=== PATIENT | male | born 1950 | race African-American/Black ===

== ENCOUNTER 2016-12-13 14:12 | Inpatient (IN) ==
--- NOTE | 2016-12-13 14:43 | EKG Report ---
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
[2016-12-13] MEDS ORDERED: ASPIRIN 325 MG TABLET PO STA (14:55)
[2016-12-13] MEDS ORDERED: DILTIAZEM 50 MG/10 ML VIAL IV STA (14:55)
[2016-12-13] MEDS ORDERED: ONDANSETRON 4 MG/2 ML VIAL IV STA (14:55)
--- NOTE | 2016-12-13 15:03 | EKG Report ---
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
[2016-12-13 15:15] LABS: Basophils % 0.5 % (0.0-0.8); Eosinophils % 0.2 % (0.00-10.9); Hematocrit 31.3 VOL% (42.0-52.0); Hemoglobin 11.1 GM/DL (14.0-18.0); Immature Granulocytes % 0.4 %; Immature Granulocytes Absolute 0.03 #; Lymphocytes # 1.1 10*3/uL (1.4-4.0); Lymphocytes % 12.5 % (21.2-54.2); Mean Corpuscular HGB Conc 35.5 GM/DL (32-36); Mean Corpuscular Hemoglobin 31 PG (27-34); Mean Corpuscular Volume 87.7 FL (87-102); Mean Platelet Volume 10.3 FL (9.6-12.0); Monocytes # 0.7 10*3/uL (0.11-0.8); Monocytes % 7.8 % (1.7-12.7); Neutrophils # 6.7 10*3/uL (1.4-7.4); Neutrophils % 78.6 % (38.7-73.9); Platelet Count 326 T/CUMM (130-400); Red Blood Count 3.57 MC/CUMM (3.8-5.5); Red Cell Distribution Width 13.5 % (9.3-17.3); White Blood Count 8.5 T/CUMM (4-12)
[2016-12-13] MEDS ORDERED: ONDANSETRON 4 MG/2 ML VIAL ONE (15:17)
[2016-12-13] MEDS ORDERED: ASPIRIN 325 MG TABLET ONE (15:17)
[2016-12-13] MEDS ORDERED: DILTIAZEM 50 MG/10 ML VIAL IV ONE (15:18)
[2016-12-13 15:22] LABS: INR 1.1; PT Patient Result 11.4 SECS; Partial Thromboplastin Time 32.2 SECS (0-40)
--- NOTE | 2016-12-13 15:27 | CT Report ---
CT of the head without contrast. Indication: Hemiparesthesias. Left arm numbness. Comparison: May 23, 2016. There is generalized prominence of the ventricles and sulci consistent with atrophy of aging. There is a cavum septum lucidum. There are areas of low density within the periventricular white matter, likely related to chronic microvascular ischemia. Remote lacunar infarct in the right thalamus. Remote lacunar infarcts are seen in the right caudate head and bilateral caudate body. No mass effect or midline shift. No evidence of acute hemorrhage. No cortical infarct is visible at this time. The calvarium is intact. Included paranasal sinuses and the mastoid air cells are clear. Calcific plaque is present within the intracranial internal carotid arteries. Rather extensive scalp calcifications are again noted. Impression: Chronic ischemic changes. No acute process is seen at this time. The CT exam was performed using one or more of the following dose reduction techniques: Automated exposure control, adjustment of the mA and/or kV according to patient size, or use of iterative reconstruction technique. PROCEDURE INTERPRETED AT [facility] DEPARTMENT OF RADIOLOGY Final Report Signed by: Dr. Margot Atkins
[2016-12-13 15:28] LABS: Alanine Aminotransferase 19 U/L (16-61); Albumin 2.9 G/DL (3.4-5.0); Alkaline Phosphatase 61 U/L (45-117); Aspartate Amino Transferase 22 U/L (0-37); Blood Urea Nitrogen 26 MG/DL (7-18); Calcium 9.6 MG/DL (8.5-10.1); Glucose 245 MG/DL (74-106); Potassium 3.2 MMOL/L (3.5-5.1); Sodium 136 MMOL/L (136-145); Total Protein 7.1 G/DL (6.4-8.3); Troponin I Only 0.164 NG/ML (0.00-0.045)
--- NOTE | 2016-12-13 15:28 | XRay Report ---
Portable chest. Indication: Cardiomegaly. Comparison: May 23, 2016. The heart is normal in size. The pulmonary vasculature is normal. The lung gonzales are clear. There is uncoiling of the thoracic aorta which often indicates chronic hypertension. Severe degenerative changes are noted at each shoulder. Impression: No acute abnormality. PROCEDURE INTERPRETED AT [facility] DEPARTMENT OF RADIOLOGY Final Report Signed by: Dr. Margot Atkins
[2016-12-13] MEDS ORDERED: ENOXAPARIN 100 MG/ML SYRINGE SUBCUT STA (15:48)
[2016-12-13] MEDS: DILTIAZEM INJ 100 MG in SODIUM CHLORIDE 0.9% 100 ML IV SCH ×2 (15:51→16:45)
--- NOTE | 2016-12-13 15:53 | Emergency Department Note ---
IShon Brooke, am scribing for, and in the presence of, Sergo Patel MD 15 :03. Amanda Coe Charles R, MD, personally performed the services described in this documentation, ascribed by Judy Menendez in my presence, and it is both accurate and complete 553 . Arrival - Arrival Chief Complaint: Extremity Problem Stated Complaint: lt arm numb and pain in neck ED Nursing Triage Note: Pt c/o left arm numbness and neck pain x 3 days states he was seen here earlier in the year for the same complaint given meds but after his meds ran out the sx returned. Mode of Arrival: Ambulatory Source: Patient, Family, RN Notes Reviewed Time Seen by Provider: 12/13/16 14:22 - History of Present Illness HPI Narrative: Patient is a 66 year old male who presents to the ED with c/o chest pain, neck pain, and numbness to the left arm. Patient says his chest pain started about three days ago but stopped last night. He is not currently having any chest pain. Patient says the neck pain and numbness in the left arm started three days ago but Family member says it is a chronic problem. The neck pain is in the left side. He denies having any shortness of breath, numbness in the face, or vision changes. Patient was here, "earlier this year," with similar complaint. He says he saw a Television Equipment Operator and they "ran some tests." Patient has not followed up with a Television Equipment Operator since. Family says Patient has done therapy on his left arm, in the past. Patient is unable to lift his left arm above his chest and states "I have no control over it." Patient has PMHx of HTN and NIDDM. Patient takes "two" ASA daily. He denies use of alcohol, drugs, or cigarettes. Allergies/Adverse Reactions: Allergies Allergy/AdvReac Type Severity Reaction Status Date / Time No Known Allergies Allergy Unverified 05/23/16 13:27 Home Medications: Home Medications Medication Instructions Recorded Confirmed Type Aspirin EC Tab 81 mg PO DAILY 05/23/16 12/13/16 History Atorvastatin [Lipitor] 40 mg PO BEDTIME 05/23/16 12/13/16 History Doxazosin Mesylate 8 mg PO BID 05/23/16 12/13/16 History Losartan Potassium 100 mg PO DAILY 05/23/16 12/13/16 History hydroCHLOROthiazide [Microzide] 12.5 mg PO DAILY 05/23/16 12/13/16 History metFORMIN [Glucophage] 500 mg PO TID W/MEALS 05/23/16 12/13/16 History amLODIPine [Norvasc] 10 mg PO DAILY 12/13/16 12/13/16 History Review of System - Review of System 12 point system: reviewed and no additional remarkable complaints except as stated - Review of System Constitutional: Absent: fever Respiratory: Absent: respiratory distress Cardiovascular: Present: chest pain Musculoskeletal: Present: neck pain (left) Skin: Absent: rash Neurological: Present: numbness (left arm) Medical,Surgical,& Family Hx - Medical History Cardio: History of: Hypertension Endocrine: History of: Diabetes Mellitus (NIDDM) Musculoskeletal: History of: Musculoskeletal Problems - Surgical History Thoracic Surgeries: Patient denies;: Organ Transplant - Family History Family History: Reports;: Family Diabetes (sister), Family Hypertension (sister , father), Family Stroke (father) Denies;: Family Anesthesia Reaction, Family Heart Disease, Family Psychiatric Problems - Social History Smoking Status: Never smoker Exam Vital Signs: Vital Signs Temperature 98.5 F 12/13/16 15:44 Pulse Rate 106 H 12/13/16 16:01 Respiratory Rate 18 12/13/16 16:01 Blood Pressure 110/70 12/13/16 16:01 O2 Sat by Pulse Oximetry 98 12/13/16 16:01 - General General appearance: alert, in no apparent distress - Head Head exam: Present: atraumatic, normocephalic - Eye Eye exam: Present: normal appearance, PERRL, EOMI - ENT ENT exam: Present: normal exam - Neck Neck exam: Present: other (chronic neck pain) - Chest Chest inspection: Present: normal inspection, symmetric chest wall rise - Respiratory Respiratory exam: Present: normal lung sounds bilaterally - Cardiovascular Cardiovascular exam: Present: tachycardia, irregular rhythm, normal heart sounds. Absent: normal rhythm (afib) - Abdominal Exam Abdominal exam: Present: soft, normal bowel sounds. Absent: distention, tenderness - Extremities Exam Extremities exam: Present: other (left arm weakness- can't lift above chest. Originally thought it was acute but it's not.) - Back Exam Back exam: Present: normal inspection - Neurological Exam Neurological exam: Present: alert, oriented X3, CN II-XII intact (No neuro deficits), other (decreased sensation and decreased motor function(3 out of 5) of the left hand. No facial droop. ) - Psychiatric Psychiatric exam: Present: normal affect, normal mood - Skin Skin exam: Present: warm, dry, intact, normal color Course - Consultations Consultation #1: Hospitalist will admit patient Time: 15:51 Results - Labs CBC & BMP: 12/13/16 14:50 12/13/16 14:50 Lab Results: I have reviewed the patients labs Labs: Laboratory Tests 12/13/16 12/13/16 12/13/16 14:50 14:50 14:50 WBC 8.5 RBC 3.57 L Hgb 11.1 L Hct 31.3 L MCV 87.7 MCH 31 MCHC 35.5 RDW 13.5 Plt Count 326 MPV 10.3 Neut % (Auto) 78.6 H Lymph % (Auto) 12.5 L Waller % (Auto) 7.8 Eos % (Auto) 0.2 Baso % (Auto) 0.5 Neut # (Auto) 6.7 Lymph # (Auto) 1.1 L Waller # (Auto) 0.7 Eos # (Auto) 0.0 Baso # (Auto) 0.0 Immature Gran % 0.4 Nucleated RBC % 0.0 Immature Gran # 0.03 Nucleated RBCs # 0.00 INR 1.1 PT Patient/Control Mix 11.4 Circ Anticoag PTT 32.2 Sodium 136 Potassium 3.2 L Chloride 100 Carbon Dioxide 24 Anion Gap 15.2 H BUN 26 H Creatinine 2.10 H GFR Calculation 41 BUN/Creatinine Ratio 12.00 Glucose 245 H Calculated Osmolality 284.0 Calcium 9.6 Total Bilirubin 0.70 AST 22 ALT 19 Alkaline Phosphatase 61 Troponin I 0.164 H Total Protein 7.1 Albumin 2.9 L Globulin 4.2 H Albumin/Globulin Ratio 0.6 L Serum Alcohol < 15 L - Diagnostic Findings Procedure: Chest x-ray: report reviewed by me (No acute abnormality.), CT: report reviewed by me (CT head/brain wo con: Chronic ishcemic changes. No acute process is seen at this time.) Critical Care Time Critical Care Time: Yes Total Critical Care Time: 60 Disposition Clinical Impression: Tachyarrhythmia, Elevated troponin, Left arm weakness, Atypical chest pain, Renal insufficiency, Paroxysmal atrial fibrillation with rapid ventricular response Case discussed with: patient, patient's family Disposition: Still a Patient Condition: Guarded Time of Disposition: 15:53
[2016-12-13] MEDS ORDERED: ENOXAPARIN 100 MG/ML SYRINGE SUBCUT ONE (15:54)
[2016-12-13] MEDS ORDERED: MORPHINE 2 MG/1 ML SYRINGE IV PRN (16:23)
[2016-12-13] MEDS ORDERED: ONDANSETRON 4 MG/2 ML VIAL IV PRN (16:23)
[2016-12-13] MEDS ORDERED: GLUCAGON 1 MG VIAL IM PRN ×2 (16:30)
[2016-12-13] MEDS ORDERED: DEXTROSE 50% 25 GM/50 ML VIAL IV PRN ×2 (16:30)
[2016-12-13] MEDS ORDERED: DILTIAZEM INJ 100 MG in SODIUM CHLORIDE 0.9% 100 ML IV SCH (16:45)
[2016-12-13] MEDS ORDERED: DILTIAZEM 100 MG VIAL.ADD IV ONE (16:53)
[2016-12-13] MEDS ORDERED: SODIUM CHLORIDE 0.9% 100 ML IV ONE (16:53)
--- NOTE | 2016-12-13 17:08 | Hospitalist History & Physical ---
<Ankita Butler - Last Filed: 12/13/16 17:08> Assessment and Plan (1) Atypical chest pain Status: Acute Assessment and plan: Repeat cardiac enzymes. Consult CIS. Current Visit: Yes (2) Elevated troponin Status: Acute Current Visit: Yes (3) Left arm weakness Status: Acute Assessment and plan: TIA versus CVA with A. fib with RVR. Stroke workup. Current Visit: Yes (4) Paroxysmal atrial fibrillation with rapid ventricular response Status: Acute Assessment and plan: Cardizem bolus given in the ED. Cardizem drip started. Continue Cardizem drip and start beta-marc. Anticoagulated. Consult cardiology. Current Visit: Yes (5) Renal insufficiency Status: Acute Assessment and plan: Hydrate and recheck labs in a.m. Current Visit: Yes (6) DM2 (diabetes mellitus, type 2) Status: Chronic Assessment and plan: Diabetic diet and Accu-Cheks. 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 Rashid is a 66 year old male who presents to the ED with c/o chest pain , neck pain, and numbness to the left arm. Patient says his chest pain started about three days ago but stopped last night. He is not currently having any chest pain. Patient says the neck pain and numbness in the left arm started three days ago but Family member says it is a chronic problem. The neck pain is in the left side. He denies having any shortness of breath, numbness in the face , or vision changes. Patient was here, "earlier this year," with similar complaint. He says he saw a Senior Sustainability Consultant and they "ran some tests." Patient has not followed up with a Senior Sustainability Consultant since. Family says Patient has done therapy on his left arm, in the past. Patient is unable to lift his left arm above his chest and states "I have no control over it." Patient has PMHx of HTN and NIDDM. Patient takes "two" ASA daily. He denies use of alcohol, drugs, or cigarettes. During his evaluation in the emergency department, the patient was noted to have atrial fibrillation with rapid ventricular response as well as an elevated troponin. He has been referred to the hospital service for admission for workup of his A. fib with RVR and new left sided weakness with elevated troponins. A Cardizem drip has been started and the patient will be admitted to telemetry to my service. Further recommendations will depend on his response to therapy. Case was discussed at length with Swati Monroy NP. Home Medications Medication Instructions Recorded Confirmed Type Aspirin EC Tab 81 mg PO DAILY 05/23/16 12/13/16 History Atorvastatin [Lipitor] 40 mg PO BEDTIME 05/23/16 12/13/16 History Doxazosin Mesylate 8 mg PO BID 05/23/16 12/13/16 History Losartan Potassium 100 mg PO DAILY 05/23/16 12/13/16 History hydroCHLOROthiazide [Microzide] 12.5 mg PO DAILY 05/23/16 12/13/16 History metFORMIN [Glucophage] 500 mg PO TID W/MEALS 05/23/16 12/13/16 History amLODIPine [Norvasc] 10 mg PO DAILY 12/13/16 12/13/16 History Allergies Allergy/AdvReac Type Severity Reaction Status Date / Time No Known Allergies Allergy Unverified 05/23/16 13:27 Medical,Surgical,& Family Hx - Medical History Cardio: History of: Hypertension Endocrine: History of: Diabetes Mellitus (NIDDM) Musculoskeletal: History of: Musculoskeletal Problems - Surgical History Thoracic Surgeries: Patient denies;: Organ Transplant - Family History Family History: Reports;: Family Diabetes (sister), Family Hypertension (sister , father), Family Stroke (father) Denies;: Family Anesthesia Reaction, Family Heart Disease, Family Psychiatric Problems - Social History Smoking Status: Never smoker 12 point system: reviewed and no additional remarkable complaints except as stated Exam - Constitutional Vitals: Period Temp Pulse Resp BP Sys/[place] Pulse Ox Last 24 Hr 98.5 F-98.5 F 96-163 18-24 110-161/70-137 96-98 Results - Labs CBC & BMP: 12/13/16 14:50 12/13/16 14:50 Lab Results: I have reviewed the past 24 hour labs Quality Measures - VTE Contraindication to Pharmacological VTE Prophylaxis: Already on Theraputic Agent , No Prophylaxis Needed <Swati Monroy - Last Filed: 12/13/16 17:40> History of Present Illness History of present illness: Mr. Rashid is a 66 year old male Medical,Surgical,& Family Hx - Social History Marital Status: Single Lives With:: Alone Functional capacity: independent ambulation - Constitutional Constitutional: Present: weakness (left arm weakness) - Cardiovascular Cardiovascular: Present: chest pain at rest, radiating jaw, neck or arm pain - Gastrointestinal Gastrointestinal: Absent: abdominal pain, nausea, vomiting - Genitourinary Genitourinary: Absent: difficulty urinating - Musculoskeletal Musculoskeletal: Absent: back pain - Neurological Neurological: Present: numbness (left arm). Absent: abnormal speech, confusion , headache(s) - Psychiatric Psychiatric: Absent: anxiety - Endocrine Endocrine: Absent: heat intolerance Exam - Constitutional Vitals: Period Temp Pulse Resp BP Sys/[place] Pulse Ox Last 24 Hr 98.5 F-98.5 F 96-163 18-24 110-161/70-137 96-98 General appearance: normal weight, no acute distress - Head Head exam: Present: normal inspection, normocephalic - Eye Eye exam: Present: EOMI Pupils: Present: ALICIA - Neck Neck exam: Present: normal inspection. Absent: thyromegaly - Respiratory Respiratory exam: Present: clear to auscultation bilaterally. Absent: wheezes - Cardiovascular Cardiovascular exam: Present: irregular rhythm (afib). Absent: regular rate and rhythm - GI/Abdominal GI/Abdominal exam: Present: normal bowel sounds, soft. Absent: tenderness - Extremities Exam Extremities exam: Present: normal capillary refill, other (pt. has weakness to left upper extremtity. rue/rle/lle has full ROM). Absent: full ROM, edema - Neurological Exam Neurological exam: Present: alert, oriented X3 - Psychiatric Psychiatric exam: Present: normal affect, normal mood, depressed - Skin Skin exam: Present: normal color, warm, dry Results - Labs CBC & BMP: 12/13/16 14:50 12/13/16 14:50 Lab Results: I have reviewed the past 24 hour labs
[2016-12-13 18:01] LABS: Apearance,Urine Slightly Hazy (Clear); Bilirubin,Urine Negative (Negative); Blood, Urine Moderate mg/dL (Negative); Glucose,Urine (UA) Negative (Negative); Ketones,Urine Negative (Negative); Mucus,Urine Occasional /LPF (Occasional); Nitrite,Urine Negative (Negative); Protein,Urine 30 MG/DL; RBC,Urine 4 /HPF (0-4); Urine Color Yellow (Yellow); Urine Specific Gravity 1.014 (1.001-1.035); WBC,Urine 3 /HPF (0-6)
[2016-12-13 18:09] LABS: Barbiturates Screen,Urine Negative (Negative); Benzodiazepines Screen,Urine Negative (Negative); Cannabinoid Screen,Urine Positive (Negative); Opiate Screen,Urine Negative (Negative); Phencyclidine Screen,Urine Negative (Negative)
[2016-12-13] MEDS: METOPROLOL TARTRATE 5 MG/5 ML VIAL IV SCH ×2 (18:52→18:53)
[2016-12-13] MEDS: SODIUM CHLORIDE 0.9% 1,000 ML IV SCH (19:00)
[2016-12-13 20:00] LABS: Troponin I Only 0.172 NG/ML (0.00-0.045)
--- NOTE | 2016-12-13 20:13 | Ultrasound Report ---
Bilateral carotid Doppler. Ultrasound images were captured and stored. Grayscale, color-flow, and spectral analysis performed and interpreted. There is calcific plaque present at the right carotid bulb and proximal right internal carotid artery. There are enlarged lymph nodes in the right carotid chain which retain their fatty moises, maximum diameter 18 mm. The right internal carotid artery peak systolic velocity is 82 cm/s with an IC/CC ratio 1.0. There is mild calcific plaque present at the origin of the left internal carotid artery. The left internal carotid artery peak systolic velocity is 88 mm/s, with an IC/CC ratio 1.6. There is antegrade flow within each vertebral artery. Impression: Using NASCET criteria, findings consistent with less than 50% stenosis bilaterally. Prominent lymph nodes in the right carotid chain. PROCEDURE INTERPRETED AT [facility] DEPARTMENT OF RADIOLOGY Final Report Signed by: Dr. Margot Atkins
[2016-12-13] MEDS: DOXAZOSIN 4 MG TABLET PO SCH (21:27)
[2016-12-13] MEDS: ATORVASTATIN 40 MG TABLET PO SCH (21:29)
[2016-12-13] MEDS: METOPROLOL TARTRATE 50 MG TABLET PO SCH (21:29)
[2016-12-13] MEDS: POTASSIUM CHLORIDE 20 MEQ TABLET PO PRN (21:29)
[2016-12-13] MEDS: INSULIN LISPRO 100 UNIT/ML SUBCUT SCH (21:30)
[2016-12-13 23:03] LABS: Troponin I Only 0.157 NG/ML (0.00-0.045)
[2016-12-14] MEDS: POTASSIUM CHLORIDE 20 MEQ TABLET PO PRN ×2 (00:10→03:00)
[2016-12-14] MEDS: SODIUM CHLORIDE 0.9% 1,000 ML IV SCH ×3 (03:22→17:45)
[2016-12-14 05:25] LABS: Basophils # 0.1 10*3/uL (0.0-0.2); Basophils % 0.7 % (0.0-0.8); Eosinophils # 0.1 10*3/uL (0.0-0.87); Eosinophils % 1.4 % (0.00-10.9); Hematocrit 27.1 VOL% (42.0-52.0); Hemoglobin 9.4 GM/DL (14.0-18.0); Immature Granulocytes % 0.4 %; Immature Granulocytes Absolute 0.03 #; Lymphocytes # 1.4 10*3/uL (1.4-4.0); Lymphocytes % 19.3 % (21.2-54.2); Mean Corpuscular HGB Conc 34.7 GM/DL (32-36); Mean Corpuscular Hemoglobin 31 PG (27-34); Mean Corpuscular Volume 88.9 FL (87-102); Mean Platelet Volume 10.5 FL (9.6-12.0); Monocytes # 0.8 10*3/uL (0.11-0.8); Monocytes % 10.3 % (1.7-12.7); Neutrophils % 67.9 % (38.7-73.9); Platelet Count 310 T/CUMM (130-400); Red Blood Count 3.05 MC/CUMM (3.8-5.5); Red Cell Distribution Width 13.5 % (9.3-17.3); White Blood Count 7.3 T/CUMM (4-12)
[2016-12-14 05:45] LABS: Hypochromasia 1+; Platelet Estimate Adequate
[2016-12-14 06:14] LABS: Albumin 2.4 G/DL (3.4-5.0); Bilirubin,Total 0.6 MG/DL (0.2-1.0); Calcium 8.4 MG/DL (8.5-10.1); Magnesium 1.6 MG/DL (1.8-2.4); Osmolality,Calculated 282.5 MOS/KG (273-304); Potassium 3.7 MMOL/L (3.5-5.1); Risk Ratio 2.13; Thyroid Stimulating Hormone 0.476 uIU/ml (0.358-3.74); Total Protein 6.1 G/DL (6.4-8.3)
[2016-12-14] MEDS: ENOXAPARIN 80 MG/0.8 ML SYRINGE SUBCUT SCH ×2 (06:36→17:45)
--- NOTE | 2016-12-14 07:48 | EKG Report ---
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
--- NOTE | 2016-12-14 07:49 | EKG Report ---
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
[2016-12-14] MEDS: INSULIN LISPRO 100 UNIT/ML SUBCUT SCH ×5 (08:31→20:48)
[2016-12-14] MEDS ORDERED: ASPIRIN EC 81 MG TABLET PO SCH (09:00)
[2016-12-14] MEDS ORDERED: amLODIPine 10 MG TABLET PO SCH (09:00)
[2016-12-14] MEDS: DOXAZOSIN 4 MG TABLET PO SCH ×2 (09:10→20:48)
[2016-12-14] MEDS: LOSARTAN 50 MG TABLET PO SCH (09:10)
[2016-12-14] MEDS: ASPIRIN EC 81 MG TABLET PO SCH (09:11)
[2016-12-14] MEDS: METOPROLOL TARTRATE 50 MG TABLET PO SCH ×2 (09:11→20:48)
[2016-12-14] MEDS: PANTOPRAZOLE 40 MG TABLET PO SCH (09:12)
--- NOTE | 2016-12-14 10:54 | Cardiology Consult Note ---
Assessment and Plan - Time spent with patient Time spent with patient: Greater than 30 minutes (due to assessment, plan, and documentation) (1) Paroxysmal atrial fibrillation with rapid ventricular response Status: Acute Assessment and plan: See plan of care listed below. Current Visit: Yes (2) Atypical chest pain Status: Acute Assessment and plan: See plan of care listed below. Current Visit: Yes (3) Elevated troponin Status: Acute Assessment and plan: See plan of care listed below. Current Visit: Yes (4) Left arm weakness Status: Acute Assessment and plan: See plan of care listed below. Current Visit: Yes (5) Renal insufficiency Status: Acute Assessment and plan: See plan of care listed below. Current Visit: Yes (6) DM2 (diabetes mellitus, type 2) Status: Chronic Assessment and plan: See plan of care listed below. 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 Rashid is a 66 year old male with a history of hypertension and diabetes. Risk factors are significant for: Age, hypertension , diabetes, sedentary lifestyle. He denies any use of alcohol, drugs, or tobacco. Mr. Rashid presented to the emergency room with complaints of chest pain, neck pain, and numbness to left arm. He tells me his chest began hurting approximately 3 days ago substernal region and did not wax or wane but remained consistent until the night before admission. He denies any associated shortness of breath. This pain occurred at rest and he can identify no exacerbating or alleviating factors. It is nonreproducible to palpation, movement, or deep breath. He does report associated palpitations and feeling as if his heart was racing. Patient is a poor historian but according to the records, the patient's family says that he has had therapy on the left arm in the past. Presently, he is unable to lift this left arm above the chest level. He has also unable to extend his neck reports he feels as if he "has a crick in it." He tells me that he was seen earlier this year for similar complaint and thinks he was "A. fibbing" at that time. 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 He reports he has not had any recent exertional dyspnea or chest pain. He was started on IV diltiazem in the emergency room and heart rates have improved. He has subsequently converted to normal sinus rhythm. Will further discuss with Dr. Crespo and await additional recommendations. ASSESSMENT/PLAN: 1. PAF W/ RVR - Now normal sinus rhythm with well-controlled ventricular response. CHADSVASC score 5. He is currently being anticoagulated with full strength Lovenox. Will start him on PO Cardizem and monitor his response. TSH normal. Will start patient on Ascorbic Acid PO BID. 2. ATYPICAL CHEST PAIN - Patient's pain is very atypical in nature. I believe it 's likely this is related to his Afib w/ RVR. 3. ELEVATED TROPONIN - Patient has had trivial troponin elevation with normal CPK and CK-MB. This is in the setting of renal insufficiency with creatinine 1.9 -2.1. Suspect this is also related to his afib w/ RVR upon admission with HR 163. 4. LEFT ARM WEAKNESS - Stroke workup is underway. He is for MRI of the brain today. Head CT showed chronic ischemic changes but no acute process. 5. RENAL INSUFFICIENCY - Creatinine 2.1 with GFR 41 on admission, now down to 1.9 with GFR 47. Will avoid nephrotoxic agents and continue to monitor BMP. 6. TYPE 2 DIABETES MELLITUS - Hemoglobin A1c 6.0. He has been started on a diabetic diet and Accu-Cheks with sliding scale insulin. CC: Ankita Butler MD - Home Medications and Allergies Home Medications: Home Medications Medication Instructions Recorded Confirmed Type Aspirin EC Tab 81 mg PO DAILY 05/23/16 12/13/16 History Atorvastatin [Lipitor] 40 mg PO BEDTIME 05/23/16 12/13/16 History Doxazosin Mesylate 8 mg PO BID 05/23/16 12/13/16 History Losartan Potassium 100 mg PO DAILY 05/23/16 12/13/16 History hydroCHLOROthiazide [Microzide] 12.5 mg PO DAILY 12/28/16 07/20/17 History metFORMIN [Glucophage] 500 mg PO TID W/MEALS 05/23/16 12/13/16 History amLODIPine [Norvasc] 10 mg PO DAILY 12/13/16 12/13/16 History Allergies/Adverse Reactions: Allergies Allergy/AdvReac Type Severity Reaction Status Date / Time No Known Allergies Allergy Unverified 05/23/16 13:27 Review of systems: - Constitutional: Present: weakness, As per HPI. Absent: anorexia, chills, daytime sleepiness, excessive sweating, fever(s), frequent falls, headache(s), increased appetite, lethargy, malaise, night sweats, stops breathing during sleep, weight gain, weight loss, fatigue. - EENT Eyes: Present: As per HPI. Absent: blurry vision, diplopia, loss of vision Ears: Present: As per HPI. Absent: decreased hearing, ear discharge, ear pain Nose, mouth and throat: Present: neck pain, As per HPI. Absent: dysphagia, epistaxis, headache(s), hoarseness, lip swelling, nasal congestion, neck mass, sinus pressure, sore throat, throat swelling, tongue swelling, vertigo - Cardiovascular: Present: chest pain at rest, radiating jaw, neck or arm pain, palpitations, as per HPI. Absent: chest pain with activity, dyspnea, dyspnea on exertion, edema, claudication, diaphoresis, lightheadedness, orthopnea, PND - Respiratory: Present: as per HPI. Absent: dyspnea, dyspnea on exertion, cough , hemoptysis, wheezing, snoring, pain on inspiration - Gastrointestinal: Present: As per HPI. Absent: abdominal pain, bloating, change in bowel habits, constipation, diarrhea, heartburn, hematemesis, hematochezia, loose stools, melena, nausea, vomiting - Genitourinary: Present: As per HPI. Absent: difficulty urinating, dysuria, flank pain, hematuria, nocturia, urinary frequency, urinary incontinence - Musculoskeletal: Present: limited range of motion, As per HPI. Absent: arthralgias, back pain, joint swelling, muscle cramps, myalgias - Neurological: Present: As per HPI. Absent: abnormal gait, abnormal speech, behavioral changes, confusion, convulsions, disequilibrium, dizziness, focal weakness, frequent falls, headache(s), memory loss, numbness, paresthesias, radicular pain, syncope, tremor(s) - Psychiatric: Present: As per HPI. Absent: anxiety, confusion, depression, panic attacks - Endocrine: Present: As per HPI. Absent: cold intolerance, fatigue, heat intolerance, polydipsia, polyphagia - Hematologic/Lymphatic: Present: As per HPI. Absent: easy bleeding, easy bruising, lymphadenopathy Medical,Surgical,& Family Hx - Medical History Cardio: History of: Cardiac Dysrhythmia (afib), Hypertension Endocrine: History of: Diabetes Mellitus (NIDDM) Rheumatology: History of;: Gout - Surgical History Thoracic Surgeries: Patient denies;: Organ Transplant - Family History Family History: Reports;: Family Diabetes (sister), Family Hypertension (sister , father), Family Stroke (father) Denies;: Family Anesthesia Reaction, Family Heart Disease, Family Psychiatric Problems - Social History Smoking Status: Never smoker Frequency of Alcohol Use: None Type of Drug Use: None Marital Status: Lives With:: Alone Functional capacity: independent ambulation Physical Examination Vital Signs Temp Pulse Resp BP Pulse Ox 98.5 F 163 H 20 161/137 97 12/13/16 14:13 12/13/16 14:13 12/13/16 14:13 12/13/16 14:13 12/13/16 14:13 Exam: General appearance: Pleasant and cooperative, no acute distress. - Head Head exam: Present: normal inspection, normocephalic, atraumatic. Absent: hematoma, laceration - Eye Eye exam: Present: EOMI. Absent: conjunctival injection, nystagmus, periorbital swelling, scleral icterus, laceration to eyelids Pupils: Present: PERRL. Absent: constricted, dilated, fixed, irregular, unequal - ENT ENT exam: Present: normal exam, normal external ear exam - Neck Neck exam: Present: normal inspection. Absent: lymphadenopathy, meningismus, tenderness, thyromegaly, carotid bruit - Respiratory Respiratory exam: Present: clear to auscultation bilaterally. Absent: accessory muscle use, chest wall tenderness, rales, rhonchi, wheezing. - Cardiovascular Cardiovascular exam: Present: regular rate and rhythm. Absent: gallop, JVD, rubs, murmur - GI/Abdominal GI/Abdominal exam: Present: normal bowel sounds, soft. Absent: distended, firm , guarding, hernia, mass, tenderness, rebound. - Extremities Exam Extremities exam: Present: normal inspection, normal capillary refill. Upper extremity pulses 2+. Lower extremity pulses 2+. Absent: calf tenderness, edema -Musculoskeletal Exam Musculoskeletal: Present: No Fluid Collection, No Pain, Limited Range of Motion (Unable to raise LUE above chest level, unable to extend neck due to pain) - Back Exam Back exam: Present: normal inspection. Absent: muscle spasm, vertebral tenderness - Neurological Exam Neurological exam: Present: alert, oriented X3, grossly intact without resting or essential tremor - Psychiatric Psychiatric exam: Present: normal affect, normal mood - Skin Skin exam: Present: normal color, warm, dry, intact. Absent: cyanosis, diaphoretic, rash, urticaria Result/EKG - Labs CBC & BMP: 12/14/16 04:04 12/14/16 04:04 Lab Results: I have reviewed the past 24 hour labs Labs: Laboratory Results - last 24 hr 12/13/16 12/13/16 12/13/16 14:50 14:50 14:50 WBC 8.5 RBC 3.57 L Hgb 11.1 L Hct 31.3 L MCV 87.7 MCH 31 MCHC 35.5 RDW 13.5 Plt Count 326 MPV 10.3 Neut % (Auto) 78.6 H Lymph % (Auto) 12.5 L Meagher % (Auto) 7.8 Eos % (Auto) 0.2 Baso % (Auto) 0.5 Neut # (Auto) 6.7 Lymph # (Auto) 1.1 L Meagher # (Auto) 0.7 Eos # (Auto) 0.0 Baso # (Auto) 0.0 Immature Gran % 0.4 Nucleated RBC % 0.0 Immature Gran # 0.03 Nucleated RBCs # 0.00 Platelet Estimate Hypochromasia Morphology Comment INR 1.1 PT Patient/Control Mix 11.4 Circ Anticoag PTT 32.2 Sodium 136 Potassium 3.2 L Chloride 100 Carbon Dioxide 24 Anion Gap 15.2 H BUN 26 H Creatinine 2.10 H GFR Calculation 41 BUN/Creatinine Ratio 12.00 Glucose 245 H POC Glucose Hemoglobin A1c Calculated Osmolality 284.0 Calcium 9.6 Magnesium Total Bilirubin 0.70 AST 22 ALT 19 Alkaline Phosphatase 61 Total Creatine Kinase CK-MB (CK-2) Troponin I 0.164 H B-Natriuretic Peptide Total Protein 7.1 Albumin 2.9 L Globulin 4.2 H Albumin/Globulin Ratio 0.6 L Triglycerides Cholesterol LDL Cholesterol VLDL Cholesterol HDL Cholesterol Heart Disease Risk Ratio TSH 3rd Generation Urine Color Urine Appearance Urine pH Ur Specific [place] Urine Protein Urine Glucose (UA) Urine Ketones Urine Blood Urine Nitrate Urine Bilirubin Urine Urobilinogen Urine Leukocytes Urine RBC Urine WBC Urine Mucus Ur Culture Indicated? Urine Opiates Screen Ur Barbiturates Screen Ur Phencyclidine Scrn U Amphetamine/Methamph U Benzodiazepines Scrn U Cocaine Metab Screen U Cannabinoids Screen Serum Alcohol < 15 L 12/13/16 12/13/16 12/13/16 15:44 17:51 17:51 WBC RBC Hgb Hct MCV MCH MCHC RDW Plt Count MPV Neut % (Auto) Lymph % (Auto) Meagher % (Auto) Eos % (Auto) Baso % (Auto) Neut # (Auto) Lymph # (Auto) Meagher # (Auto) Eos # (Auto) Baso # (Auto) Immature Gran % Nucleated RBC % Immature Gran # Nucleated RBCs # Platelet Estimate Hypochromasia Morphology Comment INR PT Patient/Control Mix Circ Anticoag PTT Sodium Potassium Chloride Carbon Dioxide Anion Gap BUN Creatinine GFR Calculation BUN/Creatinine Ratio Glucose POC Glucose 224 H Hemoglobin A1c Calculated Osmolality Calcium Magnesium Total Bilirubin AST ALT Alkaline Phosphatase Total Creatine Kinase CK-MB (CK-2) Troponin I B-Natriuretic Peptide Total Protein Albumin Globulin Albumin/Globulin Ratio Triglycerides Cholesterol LDL Cholesterol VLDL Cholesterol HDL Cholesterol Heart Disease Risk Ratio TSH 3rd Generation Urine Color Yellow Urine Appearance Slightly hazy Urine pH 5.0 Ur Specific [place] 1.014 Urine Protein 30 Urine Glucose (UA) Negative Urine Ketones Negative Urine Blood Moderate Urine Nitrate Negative Urine Bilirubin Negative Urine Urobilinogen 2.0 H Urine Leukocytes Negative Urine RBC 4 Urine WBC 3 Urine Mucus Occasional Ur Culture Indicated? Not indicated Urine Opiates Screen Negative Ur Barbiturates Screen Negative Ur Phencyclidine Scrn Negative U Amphetamine/Methamph Negative U Benzodiazepines Scrn Negative U Cocaine Metab Screen Negative U Cannabinoids Screen Positive H Serum Alcohol 12/13/16 12/13/16 12/13/16 19:16 19:27 22:12 WBC RBC Hgb Hct MCV MCH MCHC RDW Plt Count MPV Neut % (Auto) Lymph % (Auto) Meagher % (Auto) Eos % (Auto) Baso % (Auto) Neut # (Auto) Lymph # (Auto) Meagher # (Auto) Eos # (Auto) Baso # (Auto) Immature Gran % Nucleated RBC % Immature Gran # Nucleated RBCs # Platelet Estimate Hypochromasia Morphology Comment INR PT Patient/Control Mix Circ Anticoag PTT Sodium Potassium Chloride Carbon Dioxide Anion Gap BUN Creatinine GFR Calculation BUN/Creatinine Ratio Glucose POC Glucose 133 H Hemoglobin A1c Calculated Osmolality Calcium Magnesium Total Bilirubin AST ALT Alkaline Phosphatase Total Creatine Kinase 182 167 CK-MB (CK-2) 1.4 1.4 Troponin I 0.172 H 0.157 H B-Natriuretic Peptide Total Protein Albumin Globulin Albumin/Globulin Ratio Triglycerides Cholesterol LDL Cholesterol VLDL Cholesterol HDL Cholesterol Heart Disease Risk Ratio TSH 3rd Generation Urine Color Urine Appearance Urine pH Ur Specific [place] Urine Protein Urine Glucose (UA) Urine Ketones Urine Blood Urine Nitrate Urine Bilirubin Urine Urobilinogen Urine Leukocytes Urine RBC Urine WBC Urine Mucus Ur Culture Indicated? Urine Opiates Screen Ur Barbiturates Screen Ur Phencyclidine Scrn U Amphetamine/Methamph U Benzodiazepines Scrn U Cocaine Metab Screen U Cannabinoids Screen Serum Alcohol 12/14/16 12/14/16 12/14/16 04:04 04:04 04:04 WBC 7.3 RBC 3.05 L Hgb 9.4 L Hct 27.1 L MCV 88.9 MCH 31 MCHC 34.7 RDW 13.5 Plt Count 310 MPV 10.5 Neut % (Auto) 67.9 Lymph % (Auto) 19.3 L Meagher % (Auto) 10.3 Eos % (Auto) 1.4 Baso % (Auto) 0.7 Neut # (Auto) 5.0 Lymph # (Auto) 1.4 Meagher # (Auto) 0.8 Eos # (Auto) 0.1 Baso # (Auto) 0.1 Immature Gran % 0.4 Nucleated RBC % 0.0 Immature Gran # 0.03 Nucleated RBCs # 0.00 Platelet Estimate Adequate Hypochromasia 1+ Morphology Comment INR PT Patient/Control Mix Circ Anticoag PTT Sodium 139 Potassium 3.7 Chloride 105 Carbon Dioxide 23 Anion Gap 14.7 BUN 28 H Creatinine 1.90 H GFR Calculation 47 BUN/Creatinine Ratio 14.00 Glucose 102 POC Glucose Hemoglobin A1c Calculated Osmolality 282.5 Calcium 8.4 L Magnesium 1.6 L Total Bilirubin 0.60 AST 24 ALT 20 Alkaline Phosphatase 54 Total Creatine Kinase CK-MB (CK-2) Troponin I B-Natriuretic Peptide 46 Total Protein 6.1 L Albumin 2.4 L Globulin 3.7 H Albumin/Globulin Ratio 0.6 L Triglycerides 55 Cholesterol 83 LDL Cholesterol 34.0 VLDL Cholesterol 11.0 HDL Cholesterol 39 L Heart Disease Risk Ratio 2.13 TSH 3rd Generation 0.476 Urine Color Urine Appearance Urine pH Ur Specific [place] Urine Protein Urine Glucose (UA) Urine Ketones Urine Blood Urine Nitrate Urine Bilirubin Urine Urobilinogen Urine Leukocytes Urine RBC Urine WBC Urine Mucus Ur Culture Indicated? Urine Opiates Screen Ur Barbiturates Screen Ur Phencyclidine Scrn U Amphetamine/Methamph U Benzodiazepines Scrn U Cocaine Metab Screen U Cannabinoids Screen Serum Alcohol 12/14/16 12/14/16 04:04 07:45 WBC RBC Hgb Hct MCV MCH MCHC RDW Plt Count MPV Neut % (Auto) Lymph % (Auto) Meagher % (Auto) Eos % (Auto) Baso % (Auto) Neut # (Auto) Lymph # (Auto) Meagher # (Auto) Eos # (Auto) Baso # (Auto) Immature Gran % Nucleated RBC % Immature Gran # Nucleated RBCs # Platelet Estimate Hypochromasia Morphology Comment INR PT Patient/Control Mix Circ Anticoag PTT Sodium Potassium Chloride Carbon Dioxide Anion Gap BUN Creatinine GFR Calculation BUN/Creatinine Ratio Glucose POC Glucose 111 H Hemoglobin A1c 6.0 Calculated Osmolality Calcium Magnesium Total Bilirubin AST ALT Alkaline Phosphatase Total Creatine Kinase CK-MB (CK-2) Troponin I B-Natriuretic Peptide Total Protein Albumin Globulin Albumin/Globulin Ratio Triglycerides Cholesterol LDL Cholesterol VLDL Cholesterol HDL Cholesterol Heart Disease Risk Ratio TSH 3rd Generation Urine Color Urine Appearance Urine pH Ur Specific [place] Urine Protein Urine Glucose (UA) Urine Ketones Urine Blood Urine Nitrate Urine Bilirubin Urine Urobilinogen Urine Leukocytes Urine RBC Urine WBC Urine Mucus Ur Culture Indicated? Urine Opiates Screen Ur Barbiturates Screen Ur Phencyclidine Scrn U Amphetamine/Methamph U Benzodiazepines Scrn U Cocaine Metab Screen U Cannabinoids Screen Serum Alcohol - EKG EKG results: interpreted by me, sinus rhythm Quality Measures - VTE Contraindication to Pharmacological VTE Prophylaxis: Already on Theraputic Agent , No Prophylaxis Needed
[2016-12-14] MEDS: ASCORBIC ACID 500 MG TABLET PO SCH ×2 (13:33→20:48)
[2016-12-14] MEDS: DILTIAZEM CD 120 MG CAPSULE PO SCH (13:33)
[2016-12-14] MEDS ORDERED: MAGNESIUM SULF RIDER 4 GM in PREMIX 1 EACH IV ONE (13:59)
--- NOTE | 2016-12-14 14:03 | Hospitalist Progress Note ---
Assessment and Plan (1) Atypical chest pain Status: Acute Assessment and plan: Repeat cardiac enzymes with minimal elevation of troponin. Cardiology following. Symptoms have resolved with improvement of heart rate. Current Visit: Yes (2) Elevated troponin Status: Acute Current Visit: Yes (3) Left arm weakness Status: Acute Assessment and plan: TIA versus CVA with A. fib with RVR. Stroke workup underway. Carotids without stenosis. Lipid panel unremarkable. MRI pending. Current Visit: Yes (4) Paroxysmal atrial fibrillation with rapid ventricular response Status: Acute Assessment and plan: Cardizem bolus given in the ED. Cardizem drip started. Continue Cardizem by mouth and oral beta-marc. Anticoagulated with subcu Lovenox twice daily. Cardiology consult pending. Current Visit: Yes (5) Renal insufficiency Status: Acute Assessment and plan: Hydrate and recheck labs in a.m. -slightly improved with IV fluids. Current Visit: Yes (6) DM2 (diabetes mellitus, type 2) Status: Chronic Assessment and plan: Diabetic diet and Accu-Cheks. Current Visit: Yes Qualifiers: Diabetes mellitus complication status: with kidney complications Diabetes mellitus [facility] insulin use: without [facility] use Chronic kidney disease stage: stage 2 (mild) Hospitalist: Subjective Interval history: Patient seen and examined. No acute events overnight. Case discussed with nursing staff. Labs reviewed. The patient reports his palpitations have improved. It is down into the 90s. He is still on the Cardizem drip and has been started on oral Cardizem tablets by cardiology in conjunction with the beta -blockers that were started yesterday. He is also getting aspirin daily. Exam - Constitutional Vitals: Period Temp Pulse Resp BP Sys/Beavers Pulse Ox Last 24 Hr 97.9 F-99.9 F 68-163 17-24 98-161/58-137 92-100 Exam: Constitutional System: No distress. No tremulousness. Head: Normocephalic, atraumatic. Ears, Nose and Throat System: No pain or tenderness. No epistaxis or discharge Eyes System: Pupils equal, round, and reactive. Extraocular muscles intact. Neck: Supple, without adenopathy, No jugular venous distention. No thyromegaly, neck mass, or prior surgery apparent. Respiratory System: Chest clear to auscultation. Cardiovascular System: Heart with regular rate and rhythm. No murmur. GI System: Abdomen soft, nontender. Normo active bowel sounds present. Musculoskeletal System: limbs with no pedal edema. Full distal pulses. Neurological System: left upper extremity weakness persists. No aphasia Psychiatric System: Conversation is rational Results - Labs CBC & BMP: 12/14/16 04:04 12/14/16 10:40 Lab Results: I have reviewed the past 24 hour labs Quality Measures - VTE Contraindication to Pharmacological VTE Prophylaxis: Already on Theraputic Agent , No Prophylaxis Needed
--- NOTE | 2016-12-14 14:15 | ECHO Report ---
Diaz Rashid Exam Date: 12/14/2016 08:17 Referring Physician: Technologist: Marva Renee RDCS Age: 66 Ht (in): 69 Wt (lb): 178 Gender: M Exam Location: [facility] Echo Indications: Chest pain, unspecified, Palpitations, Atrial fibrillation, Left arm numbness/weakness, Elevated troponin, Renal insufficiency, NIDDM BP: 106 / 66 HR: 74 Rhythm: Sinus Technical Quality: IMPRESSIONS Left ventricular ejection fraction is estimated at 60 %. Mild concentric left ventricular hypertrophy. Mild bilateral atrial enlargement.Mildly thickened mitral valve with mild to moderate mitral annular calcification and trace mitral valve regurgitation. Mild tricuspid valve regurgitation. Trace to mild pulmonary valve regurgitation. MEASUREMENTS (Male / Female) Normal Values 2D ECHO LV Diastolic Diameter PLAX 4.7 cm 4.2 - 5.9 / 3.9 - 5.3 cm LV Systolic Diameter PLAX 3.1 cm LV Fractional Shortening PLAX 33.8 % IVS Diastolic Thickness 1.1 cm 0.6 - 1.0 / 0.6 - 0.9 cm LVPW Diastolic Thickness 1.1 cm 0.6 - 1.0 / 0.6 - 0.9 cm RV Internal Dim ED PLAX 2.4 cm Aortic Root Diameter 3.7 cm LA Systolic Diameter LX 3.7 cm 3.0 - 4.0 / 2.7 - 3.8 cm DOPPLER TR Peak Velocity 259.0 cm/s TR Peak Gradient 26.8 mmHg FINDINGS Left Ventricle Normal left ventricular cavity size. Mild concentric left ventricular hypertrophy. Left ventricular ejection fraction is estimated at 60 %. Right Ventricle The right ventricle is normal in size and function. Right Atrium The right atrium is mildly enlarged. Left Atrium Mild atrial enlargement in apical view (elongated LA). Mitral Valve Mildly thickened mitral valve with mild to moderate mitral annular calcification and trace mitral valve regurgitation. Aortic Valve Morphologically normal aortic valve without significant sclerosis or stenosis. Tricuspid Valve Morphologically normal tricuspid valve. Mild tricuspid valve regurgitation. Tricuspid regurgitation velocities suggest a PAP of 37 mmHg. Pulmonic Valve Morphologically normal pulmonic valve. Trace to mild pulmonary valve regurgitation. Pericardium Normal pericardium without effusion. Aorta Normal ascending aorta dimension. Itz Craft (Electronically Signed) Final Date: 14 December 2016 14:13
--- NOTE | 2016-12-14 16:42 | Magnetic Resonance Report ---
History: CVA with left arm weakness Date: 12/14/2016 Study: MRI brain without IV contrast Comparison exam: No previous MRI brain The brain was imaged in 3 planes on the 1.5 Sarah magnet without IV contrast, to include diffusion, T2, FLAIR, gradient-echo, and T1-weighted sequences. The ventricles are midline in position without evidence of hydrocephalus. No no area of acute ischemia is identified with certainty on the diffusion images. There is no Chiari I malformation. There is no gross pituitary mass. There is a mild to moderate amount of patchy increased FLAIR and T2 signal in the periventricular white matter without mass effect compatible with changes of small vessel disease. Areas of chronic lacunar infarction are noted in the caudate nuclei, bilateral thalami, and left putamen. Areas of chronic lacunar ischemia are noted in the mid right cerebellar hemisphere. There is no area of hypointense gradient echo signal in the inferior vermis compatible with previous remote hemorrhage or calcification in this area. There is no extra-axial hematoma. There is a normal flow void in the superior sagittal sinus. Impression: No evidence of acute ischemia. Chronic ischemic changes. Hypointense gradient echo signal in the inferior vermis suggesting nonspecific calcification or products of remote hemorrhage PROCEDURE INTERPRETED AT [facility] DEPARTMENT OF RADIOLOGY Final Report Signed by: Dr. Haleigh Rankin
[2016-12-14] MEDS: DILTIAZEM INJ 100 MG in SODIUM CHLORIDE 0.9% 100 ML IV SCH (17:46)
[2016-12-14] MEDS: ATORVASTATIN 40 MG TABLET PO SCH (21:44)
[2016-12-15] MEDS: SODIUM CHLORIDE 0.9% 1,000 ML IV SCH ×6 (04:39→22:29)
[2016-12-15 05:06] LABS: Basophils # 0.1 10*3/uL (0.0-0.2); Basophils % 0.8 % (0.0-0.8); Eosinophils # 0.2 10*3/uL (0.0-0.87); Eosinophils % 2.7 % (0.00-10.9); Hematocrit 27.8 VOL% (42.0-52.0); Hemoglobin 9.6 GM/DL (14.0-18.0); Immature Granulocytes % 0.3 %; Immature Granulocytes Absolute 0.02 #; Lymphocytes # 1.7 10*3/uL (1.4-4.0); Lymphocytes % 23.2 % (21.2-54.2); Mean Corpuscular HGB Conc 34.5 GM/DL (32-36); Mean Corpuscular Hemoglobin 31 PG (27-34); Mean Corpuscular Volume 88.5 FL (87-102); Mean Platelet Volume 9.7 FL (9.6-12.0); Monocytes # 0.5 10*3/uL (0.11-0.8); Monocytes % 7.1 % (1.7-12.7); Neutrophils # 4.8 10*3/uL (1.4-7.4); Neutrophils % 65.9 % (38.7-73.9); Platelet Count 346 T/CUMM (130-400); Red Blood Count 3.14 MC/CUMM (3.8-5.5); Red Cell Distribution Width 13.6 % (9.3-17.3); White Blood Count 7.3 T/CUMM (4-12)
[2016-12-15 05:31] LABS: Calcium 8.3 MG/DL (8.5-10.1); Magnesium 2.3 MG/DL (1.8-2.4); Osmolality,Calculated 283.3 MOS/KG (273-304); Potassium 3.6 MMOL/L (3.5-5.1)
[2016-12-15] MEDS: ENOXAPARIN 80 MG/0.8 ML SYRINGE SUBCUT SCH (05:59)
[2016-12-15] MEDS: DOXAZOSIN 4 MG TABLET PO SCH ×2 (08:16→20:29)
[2016-12-15] MEDS: METOPROLOL TARTRATE 50 MG TABLET PO SCH ×2 (08:16→20:29)
[2016-12-15] MEDS: POTASSIUM CHLORIDE 20 MEQ TABLET PO PRN ×2 (08:16→10:03)
[2016-12-15] MEDS: ASCORBIC ACID 500 MG TABLET PO SCH ×2 (08:17→20:29)
[2016-12-15] MEDS: PANTOPRAZOLE 40 MG TABLET PO SCH (08:17)
[2016-12-15] MEDS: LOSARTAN 50 MG TABLET PO SCH (08:17)
[2016-12-15] MEDS: DILTIAZEM CD 120 MG CAPSULE PO SCH (08:17)
[2016-12-15] MEDS: INSULIN LISPRO 100 UNIT/ML SUBCUT SCH ×4 (08:17→22:22)
[2016-12-15] MEDS: ASPIRIN EC 81 MG TABLET PO SCH (08:21)
[2016-12-15] MEDS ORDERED: DILTIAZEM CD 180 MG CAPSULE PO SCH (10:58)
[2016-12-15] MEDS: POTASSIUM CHLORIDE 20 MEQ TABLET PO SCH (12:21)
--- NOTE | 2016-12-15 12:30 | Cardiology Progress Note ---
Assessment and Plan (1) Paroxysmal atrial fibrillation with rapid ventricular response Status: Acute Assessment and plan: The patient has converted back to sinus rhythm. I have changed him to oral chronic anticoagulation. His rhythm is now well controlled. His presenting symptoms have resolved. His MRI does not show any acute neurologic event. At this point he seems well compensated from a cardiac standpoint. I would continue his current medical management as an outpatient. I think I would discontinue his outpatient hydrochlorothiazide, as I think this depletes his electrolytes and make some more likely to have A. fib. I think he could be discharged home later today or tomorrow. He can follow-up with myself or his primary teasel setter in a couple of weeks with an EKG. Current Visit: Yes (2) Renal insufficiency Status: Acute Assessment and plan: This is a bit better today. As noted above, I think I would leave off his hydrochlorothiazide. Current Visit: Yes (3) Left arm weakness Status: Acute Assessment and plan: This seems to have resolved and may have been more of a musculoskeletal issue. There was no acute neurologic event seen on MRI. Current Visit: Yes (4) DM2 (diabetes mellitus, type 2) Status: Chronic Current Visit: Yes Qualifiers: Diabetes mellitus complication status: with kidney complications Diabetes mellitus terminal clerk insulin use: without senior care use Chronic kidney disease stage: stage 2 (mild) Cardiology - PN: Subj Interval history: The patient is feeling well today. He denies any new symptoms. He does not have any palpitations or chest pain. He has converted back to sinus rhythm. His MRI did not show any acute event according to the reports. He is now able to move his left arm. This may have been more of a musculoskeletal issue. His laboratory tests are stable. I would like to get his potassium up to greater than 4. With his known paroxysmal atrial fibrillation in no acute event on MRI , I think he would benefit from anticoagulation. I am going to change him to Eliquis from [facility]. From my standpoint he could be discharged later today or tomorrow if he is otherwise stable. Current Medications Apixaban (Eliquis) 5 mg PO BID [facility] Ascorbic Acid (Vitamin C Tab) 1,000 mg PO BID [facility] Last Admin: 12/15/16 08:17 Dose: 1,000 mg Aspirin () 81 mg PO DAILY [facility] Last Admin: 12/15/16 08:21 Dose: 81 mg Atorvastatin Calcium (Lipitor) 40 mg PO BEDTIME [facility] Last Admin: 12/14/16 21:44 Dose: 40 mg Dextrose/Water (D50) 25 gm IV PRN PRN PRN Reason: Hypoglycemia with IV access Diltiazem HCl (Cardizem Cd) 180 mg PO DAILY [facility] Doxazosin Mesylate (Cardura) 8 mg PO BID [facility] Last Admin: 12/15/16 08:16 Dose: 8 mg Glucagon () 1 mg IM PRN PRN PRN Reason: Hypoglycemia w/o IV access Diltiazem HCl 100 mg/ Sodium (Chloride) 100 mls @ 5 mls/hr IV TITRATE ALEXIS; 5 MG /HR PRN Reason: Protocol Last Admin: 12/14/16 17:46 Dose: Not Given Sodium Chloride (Ns) 1,000 mls @ 125 mls/hr IV .Q8H [facility] Last Admin: 12/15/16 09:51 Dose: Not Given Insulin Human Lispro (Humalog) 0 unit SUBCUT ACHS [facility] PRN Reason: Protocol Last Admin: 12/15/16 12:26 Dose: 2 unit Losartan Potassium (Cozaar) 100 mg PO DAILY [facility] Last Admin: 12/15/16 08:17 Dose: 100 mg Metoprolol Tartrate (Lopressor Tab) 50 mg PO BID [facility] Last Admin: 12/15/16 08:16 Dose: 50 mg Morphine Sulfate () 2 mg IV Q4H PRN PRN Reason: Pain Severe (8-10) Last Admin: 12/13/16 21:30 Dose: 2 mg Ondansetron HCl (Zofran Inj) 4 mg IV Q4H PRN PRN Reason: Nausea Pantoprazole Sodium (Protonix Tab) 40 mg PO DAILY [facility] Last Admin: 12/15/16 08:17 Dose: 40 mg Potassium Chloride (K Dur) 20 meq PO .PER PROTOCOL PRN; Protocol PRN Reason: Per Protocol Last Admin: 12/15/16 10:03 Dose: 20 meq Potassium Chloride (K Dur) 20 meq PO DAILY [facility] Last Admin: 12/15/16 12:21 Dose: Not Given Exam (Progress Note) - Constitutional Vitals: Period Temp Pulse Resp BP Sys/Beavers Pulse Ox Last 24 Hr 97.2 F-98.6 F 69-110 18-18 110-144/60-84 94-98 Exam: General: Appears well developed, well nourished, no apparent distress HEENT: Normocephalic, atraumatic Cardiac: Regular rhythm, 2 out of 6 murmur, no gallop, no rub Lungs: Clear to auscultation, No Wheeze, Rales, Rhonchi Neuro: Cranial Nerve 2-12 Intact, Motor Function Grossly Intact Abdomen: Soft, Active Bowel Sounds, No Masses, No Pulsations/Bruits Skin: Normal color, no rash Extremities: No Clubbing, No Cyanosis, No Edema, Normal Upper Extr. Pulses Musculoskeletal: No acute abnormality noted Psychiatric: The patient does not appear to be anxious or depressed Result/EKG - Labs CBC & BMP: 12/15/16 04:46 12/15/16 04:46 Lab Results: I have reviewed the past 24 hour labs Labs: Laboratory Results - last 24 hr 12/14/16 12/14/16 12/15/16 16:46 20:48 04:46 WBC 7.3 RBC 3.14 L Hgb 9.6 L Hct 27.8 L MCV 88.5 MCH 31 MCHC 34.5 RDW 13.6 Plt Count 346 MPV 9.7 Neut % (Auto) 65.9 Lymph % (Auto) 23.2 [place] % (Auto) 7.1 Eos % (Auto) 2.7 Baso % (Auto) 0.8 Neut # (Auto) 4.8 Lymph # (Auto) 1.7 [place] # (Auto) 0.5 Eos # (Auto) 0.2 Baso # (Auto) 0.1 Immature Gran % 0.3 Nucleated RBC % 0.0 Immature Gran # 0.02 Nucleated RBCs # 0.00 Sodium Potassium Chloride Carbon Dioxide Anion Gap BUN Creatinine GFR Calculation BUN/Creatinine Ratio Glucose POC Glucose 114 H 120 H Calculated Osmolality Calcium Magnesium 12/15/16 12/15/16 12/15/16 04:46 07:29 10:59 WBC RBC Hgb Hct MCV MCH MCHC RDW Plt Count MPV Neut % (Auto) Lymph % (Auto) [place] % (Auto) Eos % (Auto) Baso % (Auto) Neut # (Auto) Lymph # (Auto) [place] # (Auto) Eos # (Auto) Baso # (Auto) Immature Gran % Nucleated RBC % Immature Gran # Nucleated RBCs # Sodium 141 Potassium 3.6 Chloride 108 H Carbon Dioxide 24 Anion Gap 12.6 BUN 20 H Creatinine 1.50 H GFR Calculation 62 BUN/Creatinine Ratio 13.00 Glucose 102 POC Glucose 94 167 H Calculated Osmolality 283.3 Calcium 8.3 L Magnesium 2.3 - EKG EKG results: interpreted by me Quality Measures - VTE Contraindication to Pharmacological VTE Prophylaxis: Already on Theraputic Agent , No Prophylaxis Needed
[2016-12-15] MEDS: DILTIAZEM INJ 100 MG in SODIUM CHLORIDE 0.9% 100 ML IV SCH (14:51)
--- NOTE | 2016-12-15 17:34 | Hospitalist Progress Note ---
Assessment and Plan (1) Paroxysmal atrial fibrillation with rapid ventricular response Status: Acute Assessment and plan: Improved. Cardiology is following. for possible dc in am Current Visit: Yes (2) DM2 (diabetes mellitus, type 2) Status: Chronic Assessment and plan: stable on current regime. A1C-6.0 Current Visit: Yes Qualifiers: Diabetes mellitus complication status: with kidney complications Diabetes mellitus penitentiary insulin use: without penitentiary use Chronic kidney disease stage: stage 2 (mild) (3) Renal insufficiency Status: Acute Assessment and plan: Improving Current Visit: Yes (4) Left arm weakness Status: Acute Assessment and plan: MRI showed No evidence of acute ischemia. Consult PT Current Visit: Yes Hospitalist: Subjective Interval history: Patient seen. He had no new complaints. Exam - Constitutional Vitals: Period Temp Pulse Resp BP Sys/Beavers Pulse Ox Last 24 Hr 97.2 F-99.6 F 69-110 18-18 110-144/60-84 94-98 General appearance: no acute distress - Head Head exam: Present: normal inspection - Respiratory Respiratory exam: Present: clear to auscultation bilaterally - Cardiovascular Cardiovascular exam: Present: regular rate and rhythm - GI/Abdominal GI/Abdominal exam: Present: normal bowel sounds - Extremities Exam Extremities exam: Present: normal inspection, other (left upper arm weakness) - Neurological Exam Neurological exam: Present: alert, oriented X3, other (left UE weakness) Results - Labs CBC & BMP: 12/15/16 04:46 12/15/16 04:46 Lab Results: I have reviewed the past 24 hour labs Quality Measures - VTE Contraindication to Pharmacological VTE Prophylaxis: Already on Theraputic Agent , No Prophylaxis Needed
[2016-12-15] MEDS: ATORVASTATIN 40 MG TABLET PO SCH (20:29)
[2016-12-15] MEDS: APIXABAN 5 MG TABLET PO SCH (20:30)
[2016-12-16] MEDS: SODIUM CHLORIDE 0.9% 1,000 ML IV SCH ×2 (00:37→08:29)
[2016-12-16 05:15] LABS: Basophils # 0.1 10*3/uL (0.0-0.2); Basophils % 0.9 % (0.0-0.8); Eosinophils # 0.3 10*3/uL (0.0-0.87); Eosinophils % 4.8 % (0.00-10.9); Hematocrit 27.1 VOL% (42.0-52.0); Hemoglobin 9.4 GM/DL (14.0-18.0); Immature Granulocytes % 0.3 %; Immature Granulocytes Absolute 0.02 #; Lymphocytes # 1.8 10*3/uL (1.4-4.0); Mean Corpuscular HGB Conc 34.7 GM/DL (32-36); Mean Corpuscular Hemoglobin 31 PG (27-34); Mean Corpuscular Volume 89.1 FL (87-102); Mean Platelet Volume 10.6 FL (9.6-12.0); Monocytes # 0.5 10*3/uL (0.11-0.8); Monocytes % 7.8 % (1.7-12.7); Neutrophils % 59.2 % (38.7-73.9); Platelet Count 382 T/CUMM (130-400); Red Blood Count 3.04 MC/CUMM (3.8-5.5); Red Cell Distribution Width 13.7 % (9.3-17.3); White Blood Count 6.8 T/CUMM (4-12)
[2016-12-16 05:42] LABS: Calcium 8.4 MG/DL (8.5-10.1); Magnesium 1.7 MG/DL (1.8-2.4); Osmolality,Calculated 285.8 MOS/KG (273-304); Potassium 3.9 MMOL/L (3.5-5.1)
[2016-12-16] MEDS: INSULIN LISPRO 100 UNIT/ML SUBCUT SCH ×2 (08:08→11:24)
[2016-12-16] MEDS: DOXAZOSIN 4 MG TABLET PO SCH (08:25)
[2016-12-16] MEDS: ASCORBIC ACID 500 MG TABLET PO SCH (08:25)
[2016-12-16] MEDS: APIXABAN 5 MG TABLET PO SCH (08:25)
[2016-12-16] MEDS: METOPROLOL TARTRATE 50 MG TABLET PO SCH (08:25)
[2016-12-16] MEDS: LOSARTAN 50 MG TABLET PO SCH (08:25)
[2016-12-16] MEDS: POTASSIUM CHLORIDE 20 MEQ TABLET PO SCH (08:26)
[2016-12-16] MEDS: PANTOPRAZOLE 40 MG TABLET PO SCH (08:26)
[2016-12-16] MEDS: ASPIRIN EC 81 MG TABLET PO SCH (08:26)
--- NOTE | 2016-12-16 09:24 | CT Report ---
CT cervical spine Indication: Left upper extremity weakness Comparison: None available Technique: Axial CT imaging of the cervical spine is performed without contrast. Computer reformatting is viewed in the sagittal and coronal planes. Findings: No fracture is seen. There is slight reversal normal curvature centered at C3. Vertebral body heights are normal. There is loss of disc space and degenerative change of moderate to severe at C3-4, C4-5 and C5-C6. There is discussed by complex contributing to mild central canal stenosis at C3-4. There is uncovertebral joint hypertrophy contributing to foraminal narrowing moderate to severe at C3-4 C4-5 and moderate at C5-C6. No other abnormality is demonstrated. Impression: Multilevel spondylitic changes as described above. This CT exam was performed using one or more the following dose reduction techniques: Automated exposure control, adjustment of the MA and/or KV according to patient size, or use of iterative reconstruction technique. PROCEDURE INTERPRETED AT [facility] DEPARTMENT OF RADIOLOGY Final Report Signed by: Dr. Darrel Maradiaga
--- NOTE | 2016-12-16 09:26 | Discharge Summary ---
<Swati Monroy - Last Filed: 12/16/16 09:07> Hospital Course - Hospital Course Hospital Course: Mr Rashid is a 66-year-old white male patient who presented to the ED on with complaints of chest pain, neck pain, numbness to the left arm. Patient was accompanied by his preacher/family friend who provided some of the history at the bedside. Patient stated that the chest pain began 3 days prior to his visit. Patient also reported left-sided neck pain and left arm numbness. Patient's family member reported that the left arm numbness was a chronic issue. Patient did admit to having a similar complaint earlier in the year which point he was seen by stone trimmer and tests were run but patient was unable to be further details. On evaluation in the emergency department the patient was noticed to be in A. fib with RVR. Patient also had an elevated troponin level and a bun/creatinine noted at 26/2.1 (respectively). Patient was admitted to the hospitalist service for further evaluation of his A. fib with RVR and left-sided weakness with elevated troponins. Patient was started on a Cardizem drip in the ER and the patient was placed on the telemetry unit. Cardiology consult was placed. The stone trimmer started patient on po Cardizem and a beta marc was added. Pt's chest pain began to improve with rate control of afib. Carotid dopplers didn't reveal any stenosis. Lipid panel was run. MRI was unremarkable. Renal function was improved with gentle IV hydration. Patient converted back to NSR. Pt. has improved. CT of cervical spine showed Multilevel spondylitic changes . His vitals are stable.Ready for discharge. He is to follow up with his PCP and cardiology. Discharge Plan - Discharge Data Disposition: Disch To Home/Self Care - Discharge Medications New Ascorbic Acid Tab [Vitamin C Tab] 1,000 mg PO BID tablet Diltiazem Cd Cap [Cardizem CD] 180 mg PO DAILY #30 capsule Pantoprazole Tab [Protonix Tab] 40 mg PO DAILY #30 tablet HYDROcodone/ACETAMIN 5-325 [[place] 5-325] 1 tablet PO Q6H #20 tablet Apixaban [Eliquis] 5 mg PO BID #60 tablet Metoprolol Tartrate Tab [Lopressor Tab] 50 mg PO BID #60 tablet Continue Aspirin EC Tab 81 mg PO DAILY Atorvastatin [Lipitor] 40 mg PO BEDTIME metFORMIN [Glucophage] 500 mg PO TID W/MEALS Doxazosin Mesylate 8 mg PO BID Losartan Potassium 100 mg PO DAILY Discontinued hydroCHLOROthiazide [Microzide] 12.5 mg PO DAILY amLODIPine [Norvasc] 10 mg PO DAILY - Follow Up or Referral - Forms/Instructions Exam - Constitutional Vitals: Period Temp Pulse Resp BP Sys/Beavers Pulse Ox Last 24 Hr 98.4 F-99.6 F 65-75 18-20 112-139/64-72 93-98 Discharge Results Procedures and tests throughout hospitalization: Pending Orders 12/17/16 04:00 BMP w/ Mg [Basic Metabolic Panel w/Mg] IN AM Comp Blood Count Auto Diff IN AM Labs on day of discharge: Labs from last 24 hours 12/16/16 12/16/16 12/16/16 11:18 07:13 03:52 WBC RBC Hgb Hct MCV MCH MCHC RDW Plt Count MPV Neut % (Auto) Lymph % (Auto) [place] % (Auto) Eos % (Auto) Baso % (Auto) Neut # (Auto) Lymph # (Auto) [place] # (Auto) Eos # (Auto) Baso # (Auto) Immature Gran % Nucleated RBC % Immature Gran # Nucleated RBCs # Sodium 144 Potassium 3.9 Chloride 111 H Carbon Dioxide 25 Anion Gap 11.9 BUN 14 Creatinine 1.30 GFR Calculation 74 BUN/Creatinine Ratio 10.00 Glucose 81 POC Glucose 150 H 95 Calculated Osmolality 285.8 Calcium 8.4 L Magnesium 1.7 L 12/16/16 12/15/16 12/15/16 03:52 19:32 16:19 WBC 6.8 RBC 3.04 L Hgb 9.4 L Hct 27.1 L MCV 89.1 MCH 31 MCHC 34.7 RDW 13.7 Plt Count 382 MPV 10.6 Neut % (Auto) 59.2 Lymph % (Auto) 27.0 [place] % (Auto) 7.8 Eos % (Auto) 4.8 Baso % (Auto) 0.9 H Neut # (Auto) 4.0 Lymph # (Auto) 1.8 [place] # (Auto) 0.5 Eos # (Auto) 0.3 Baso # (Auto) 0.1 Immature Gran % 0.3 Nucleated RBC % 0.0 Immature Gran # 0.02 Nucleated RBCs # 0.00 Sodium Potassium Chloride Carbon Dioxide Anion Gap BUN Creatinine GFR Calculation BUN/Creatinine Ratio Glucose POC Glucose 139 H 138 H Calculated Osmolality Calcium Magnesium DS: Provider Date of admission: 12/13/16 15:55 Primary care physician: . No PCP Attending physician on admission: Ankita Butler MD Consults: 12/13/16 16:23 Consult to Physician [CONS] Routine Comment: afib with rvr Consulting Provider: Cardiology - [facility] Person Notified: Janneth Date Notified: 12/14/16 Time Notified: 20:00 Discharging clinician: Swati Monroy NP <Jessica Atkins - Last Filed: 12/16/16 13:00> Hospital Course - Time spent with patient Time with patient DS: Greater than 30 minutes (time spent >35mins) Diagnosis - Discharge Diagnosis (1) Paroxysmal atrial fibrillation with rapid ventricular response Status: Acute (2) DM2 (diabetes mellitus, type 2) Status: Chronic (3) Renal insufficiency Status: Acute (4) Left arm weakness Status: Acute Discharge Plan - Discharge Data Condition at Discharge: Stable Discharge Diet: diabetic diet Activity: resume usual activities as tolerated - Forms/Instructions Additional Discharge Instructions: Home PT. Follow PCP in 1week. Follow Cardiology as scheduled Exam - Constitutional General appearance: no acute distress - Head Head exam: Present: normal inspection - Eye Eye exam: Present: EOMI - Respiratory Respiratory exam: Present: clear to auscultation bilaterally - Cardiovascular Cardiovascular exam: Present: regular rate and rhythm - GI/Abdominal GI/Abdominal exam: Present: normal bowel sounds - Extremities Exam Extremities exam: Present: other (left arm weakness)
[2016-12-16 11:57] VITALS: BP 120/65
--- NOTE | 2016-12-16 12:55 | Cardiology Progress Note ---
Assessment and Plan (1) Paroxysmal atrial fibrillation with rapid ventricular response Status: Acute Assessment and plan: The patient has converted back to sinus rhythm. I have changed him to oral chronic anticoagulation. His rhythm is now well controlled. His presenting symptoms have resolved. His MRI does not show any acute neurologic event. At this point he seems well compensated from a cardiac standpoint and I think he could be discharged home. I would continue his current medical management as an outpatient. I think I would discontinue his outpatient hydrochlorothiazide, as I think this depletes his electrolytes and make some more likely to have A. fib. I think he should also be on Eliquis 5 mg p.o. twice daily. He can follow -up with myself or his primary stockroom worker in a couple of weeks with an EKG. Current Visit: Yes (2) Renal insufficiency Status: Acute Assessment and plan: This is a bit better today. As noted above, I think I would leave off his hydrochlorothiazide. Current Visit: Yes (3) Left arm weakness Status: Acute Assessment and plan: This seems to have resolved and may have been more of a musculoskeletal issue. There was no acute neurologic event seen on MRI. Current Visit: Yes (4) DM2 (diabetes mellitus, type 2) Status: Chronic Current Visit: Yes Qualifiers: Diabetes mellitus complication status: with kidney complications Diabetes mellitus oil heaterman insulin use: without oil heaterman use Chronic kidney disease stage: stage 2 (mild) Cardiology - PN: Subj Interval history: Patient is doing well today. He has no cardiac complaints. His rhythm is back to normal. The weakness has resolved. He did not have an acute stroke on his MRI scan. From my standpoint, I think he can be discharged home. However, I would start him on Eliquis 5 mg p.o. twice daily and stop his hydrochlorothiazide. Exam (Progress Note) - Constitutional Vitals: Period Temp Pulse Resp BP Sys/Beavers Pulse Ox Last 24 Hr 98.4 F-99.6 F 65-75 18-20 112-139/64-72 93-98 Exam: General: Appears well developed, well nourished, no apparent distress HEENT: Normocephalic, atraumatic Cardiac: Regular rhythm, 2 out of 6 murmur, no gallop, no rub Lungs: Clear to auscultation, No Wheeze, Rales, Rhonchi Neuro: Cranial Nerve 2-12 Intact, Motor Function Grossly Intact Abdomen: Soft, Active Bowel Sounds, No Masses, No Pulsations/Bruits Skin: Normal color, no rash Extremities: No Clubbing, No Cyanosis, No Edema, Normal Upper Extr. Pulses Musculoskeletal: No acute abnormality noted Psychiatric: The patient does not appear to be anxious or depressed Result/EKG - Labs CBC & BMP: 12/16/16 03:52 12/16/16 03:52 Lab Results: I have reviewed the past 24 hour labs Labs: Laboratory Results - last 24 hr 12/15/16 12/15/16 12/16/16 16:19 19:32 03:52 WBC 6.8 RBC 3.04 L Hgb 9.4 L Hct 27.1 L MCV 89.1 MCH 31 MCHC 34.7 RDW 13.7 Plt Count 382 MPV 10.6 Neut % (Auto) 59.2 Lymph % (Auto) 27.0 [place] % (Auto) 7.8 Eos % (Auto) 4.8 Baso % (Auto) 0.9 H Neut # (Auto) 4.0 Lymph # (Auto) 1.8 [place] # (Auto) 0.5 Eos # (Auto) 0.3 Baso # (Auto) 0.1 Immature Gran % 0.3 Nucleated RBC % 0.0 Immature Gran # 0.02 Nucleated RBCs # 0.00 Sodium Potassium Chloride Carbon Dioxide Anion Gap BUN Creatinine GFR Calculation BUN/Creatinine Ratio Glucose POC Glucose 138 H 139 H Calculated Osmolality Calcium Magnesium 12/16/16 12/16/16 12/16/16 03:52 07:13 11:18 WBC RBC Hgb Hct MCV MCH MCHC RDW Plt Count MPV Neut % (Auto) Lymph % (Auto) [place] % (Auto) Eos % (Auto) Baso % (Auto) Neut # (Auto) Lymph # (Auto) [place] # (Auto) Eos # (Auto) Baso # (Auto) Immature Gran % Nucleated RBC % Immature Gran # Nucleated RBCs # Sodium 144 Potassium 3.9 Chloride 111 H Carbon Dioxide 25 Anion Gap 11.9 BUN 14 Creatinine 1.30 GFR Calculation 74 BUN/Creatinine Ratio 10.00 Glucose 81 POC Glucose 95 150 H Calculated Osmolality 285.8 Calcium 8.4 L Magnesium 1.7 L - EKG EKG results: interpreted by me Quality Measures - VTE Contraindication to Pharmacological VTE Prophylaxis: Already on Theraputic Agent , No Prophylaxis Needed
[2016-12-16] MEDS: DILTIAZEM INJ 100 MG in SODIUM CHLORIDE 0.9% 100 ML IV SCH (15:10)
--- NOTE | 2016-12-18 09:49 | Physician Query Form ---
CLICK EDIT DOCUMENT TO SELECT QUERY ANSWER --> OK --> SIGN Elisa Centeno RN, CCDS Certified Clinical Saddle Stitching Machine Operator W) [phone] (f) [phone] [email or web address]: Make your selection(s) from the choices in EACH section by typing an "x" and enter comments in the comment section. Please use your independent medical judgment in providing your response. This request does not imply that any particular answer is desired or expected. CLINICAL INDICATORS: (Providers should not edit this section) The medical record indicates that the patient was admitted with AF, Renal Insufficiency, creatinine of 2.10 on the that has decreased to 1.30 on the , GFR of 41 on the that has increased to 74 on the and the patient was treated with IVF's. History of CKD stage 2 Clarify which of the following most accurately represents the patient's renal status: ( ) Acute kidney injury (non-traumatic) ( ) Acute renal failure (X ) Acute renal failure with underlying Chronic Kidney Disease (CKD) - please provide stage below ( ) Acute renal failure with pathological renal lesion ( ) Acute renal failure with necrosis ( ) tubular ( ) medullary ( ) cortical ( ) CKD - please provide stage below ( ) End Stage Renal Disease ( ) Acute interstitial nephritis ( ) Hepatorenal syndrome ( ) Other, please specify: ( ) Clinically unable to determine Chronic Kidney Disease Stages Source: National Kid[employer] Foundation ( ) Stage I (eGFR > or = 90) (x ) Stage II (eGFR 60 - 89) ( ) Stage III (eGFR 30 - 59) ( ) Stage IV (eGFR 15 - 29) ( ) Stage V (eGFR < 15 or dialysis) COMMENTS: PLEASE ALSO DOCUMENT RESPONSE IN PROGRESS NOTES AND/OR DISCHARGE SUMMARY Use of terms such as suspected, likely, or probable (associated with a specific diagnosis that is being evaluated, monitored, or treated as if it exists) are acceptable and can be restated in the discharge summary if not ruled out. MTDD
== END 2016-12-16 15:38 | disposition home or self-care (01) | DRG 309 ==
LOC: N.ED 14:12 → N.EDINP 15:55 → SUATTDRO 15:55 → N.EDINP 18:16 → N.TELEN 18:58
PROVIDERS: ADMIT Family Medicine; ATTEND Internal Medicine

== ENCOUNTER 2021-07-22 12:44 | Inpatient (IN) ==
[2021-07-22] MEDS ORDERED: propofoL 200 MG/20 ML VIAL IV ONE (14:32)
[2021-07-22 15:10] LABS: Basophils # 0.1 10*3/uL (0.0-0.2); Basophils % 0.8 % (0.0-0.8); Eosinophils # 0.1 10*3/uL (0.0-0.87); Eosinophils % 0.5 % (0.00-10.9); Hematocrit 42.5 VOL% (42.0-52.0); Hemoglobin 14.1 GM/DL (14.0-18.0); Immature Granulocytes % 0.5 %; Immature Granulocytes Absolute 0.05 #; Lymphocytes # 1.1 10*3/uL (1.4-4.0); Lymphocytes % 12.2 % (21.2-54.2); Mean Corpuscular HGB Conc 33.2 GM/DL (32-36); Mean Corpuscular Volume 91.6 FL (87-102); Mean Platelet Volume 10.8 FL (9.6-12.0); Monocytes % 5.1 % (1.7-12.7); Neutrophils % 80.9 % (38.7-73.9); Platelet Count 364 T/CUMM (130-400); Red Blood Count 4.64 MC/CUMM (3.8-5.5); Red Cell Distribution Width 13.6 % (9.3-17.3); White Blood Count 9.3 T/CUMM (4-12)
[2021-07-22 15:41] LABS: Albumin 3.6 G/DL (3.4-5.0); Bilirubin,Total 0.9 MG/DL (0.20-1.00); Calcium 9.8 MG/DL (8.5-10.1); Osmolality,Calculated 275.5 MOS/KG (273-304); Total Protein 9.2 G/DL (6.4-8.2)
[2021-07-22] MEDS ORDERED: PROMETHAZINE 25 MG/1 ML VIAL IM PRN (15:55)
[2021-07-22] MEDS ORDERED: HYDROmorphone 2 MG/1 ML VIAL IV PRN (15:55)
[2021-07-22] MEDS ORDERED: ONDANSETRON 4 MG/2 ML VIAL IV PRN (15:55)
[2021-07-22] MEDS ORDERED: ACETAMINOPHEN 325 MG TABLET PO PRN (15:55)
[2021-07-22] MEDS: KETOROLAC 30 MG/1 ML VIAL IV SCH ×2 (16:39→21:35)
[2021-07-22] MEDS: LACTATED RINGERS 1,000 ML IV SCH (16:40)
[2021-07-23] MEDS: LACTATED RINGERS 1,000 ML IV SCH ×2 (03:42→10:56)
[2021-07-23] MEDS: KETOROLAC 30 MG/1 ML VIAL IV SCH ×4 (03:43→21:18)
[2021-07-23 07:03] LABS: Basophils # 0.1 10*3/uL (0.0-0.2); Basophils % 0.8 % (0.0-0.8); Eosinophils # 0.2 10*3/uL (0.0-0.87); Eosinophils % 2.7 % (0.00-10.9); Hematocrit 34.6 VOL% (42.0-52.0); Hemoglobin 11.6 GM/DL (14.0-18.0); Immature Granulocytes % 0.4 %; Immature Granulocytes Absolute 0.03 #; Lymphocytes # 1.4 10*3/uL (1.4-4.0); Lymphocytes % 18.4 % (21.2-54.2); Mean Corpuscular HGB Conc 33.5 GM/DL (32-36); Mean Corpuscular Volume 91.5 FL (87-102); Mean Platelet Volume 10.5 FL (9.6-12.0); Monocytes % 9.7 % (1.7-12.7); Platelet Count 345 T/CUMM (130-400); Red Blood Count 3.78 MC/CUMM (3.8-5.5); Red Cell Distribution Width 13.4 % (9.3-17.3); White Blood Count 7.4 T/CUMM (4-12)
[2021-07-23 07:04] LABS: Calcium 8.7 MG/DL (8.5-10.1)
[2021-07-23] MEDS: PANTOPRAZOLE 40 MG TABLET PO SCH (10:56)
[2021-07-24] MEDS: KETOROLAC 30 MG/1 ML VIAL IV SCH ×4 (03:23→21:35)
[2021-07-24] MEDS: LACTATED RINGERS 1,000 ML IV SCH ×3 (05:26→11:18)
[2021-07-24] MEDS: PANTOPRAZOLE 40 MG TABLET PO SCH (09:39)
[2021-07-25] MEDS: KETOROLAC 30 MG/1 ML VIAL IV SCH ×3 (03:37→15:40)
[2021-07-25] MEDS: PANTOPRAZOLE 40 MG TABLET PO SCH (08:41)
[2021-07-25 15:15] VITALS: BP 95/56
[2021-07-25] MEDS ORDERED: METOPROLOL TARTRATE 50 MG TABLET PO SCH (21:00)
[2021-07-26] MEDS ORDERED: amLODIPine 10 MG TABLET PO SCH (09:00)
[2021-07-26] MEDS ORDERED: ASPIRIN EC 81 MG TABLET PO SCH (09:00)
[2021-07-26] MEDS ORDERED: SPIRONOLACTONE 25 MG TABLET PO SCH (09:00)
[2021-07-26] MEDS ORDERED: hydroCHLOROthiazide 12.5 MG CAPSULE PO SCH (09:00)
[2021-07-26] MEDS ORDERED: DILTIAZEM CD 180 MG CAPSULE PO SCH (09:00)
== END 2021-07-25 17:02 | disposition home or self-care (01) | DRG 200 ==
LOC: N.ED 12:44 → N.EDINP 15:12 → N.3E 17:32
PROVIDERS: ADMIT Surgery; ATTEND Surgery